=== PATIENT | male | born 1975 | race Two or more races ===

== ENCOUNTER 2024-05-12 07:50 | Day surgery (SDC) | payer MEDICAID, SELFPAY ==
--- NOTE | 2024-05-11 07:00 | EKG_ITS ---
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
[2024-05-11 11:08] VITALS: BMI 40.9
[2024-05-11 13:38] LABS: Basophils % (Auto) 1 % (0-2.5); Eosinophils # (Auto) 0.2 Thou/mm3 (0.0-0.5); Eosinophils % (Auto) 4 % (0-10); Hematocrit 42.9 % (41.0-53.0); Hemoglobin 15.2 g/dL (13.5-16.0); Immature Granulocytes % (Auto) 0 % (0-0); Immature Granulocytes Auto 0.01 Thou/mm3 (0.00-0.00); Lymphocytes # (Auto) 1.2 Thou/mm3 (1.0-4.8); Lymphocytes % (Auto) 23 % (10-50); Mean Corpuscular HGB Conc 35.4 g/dl (31.0-37.0); Mean Corpuscular Hemoglobin 30.3 pg (25.0-35.0); Mean Corpuscular Volume 86 fL (80-100); Monocytes # (Auto) 0.6 Thou/mm3 (0.0-0.8); Monocytes % (Auto) 12 % (0-12); Neutrophils # (Auto) 3.1 Thou/mm3 (1.8-7.7); Neutrophils % (Auto) 60 % (37-80); Nucleated Red Blood Cell % 0 /100 WBC (0); RDW Standard Deviation 41.7 fL (35.1-43.9); Red Blood Count 5.01 Miln/mm3 (4.50-5.90); White Blood Count 5.1 Thou/mm3 (3.8-10.6)
[2024-05-11 13:47] LABS: Alanine Aminotransferase 37 U/L (10-49); Albumin, Serum 3.7 gm/dL (3.5-5.0); Alkaline Phosphatase 245 U/L (46-116); Anion Gap 6 (7-16); Aspartate Amino Transferase 42 U/L (0-34); BUN/Creatinine Ratio 10 Ratio (12-20); Bilirubin,Total 1.7 mg/dL (0.3-1.2); Blood Urea Nitrogen 7 mg/dL (9-23); Calcium 9.4 mg/dL (8.3-10.6); Calcium (Corrected) 9.6 mg/dL (8.5-10.1); Chloride 103 mMol/L (98-107); Creatinine (Component) 0.7 mg/dL (0.6-1.3); Globulin 3.8 gm/dL (2.3-3.5); Glucose 177 mg/dL (74-106); Osmolality,Calculated 273 (275-295); Potassium 4.1 mMol/L (3.4-5.1); Sodium 136 mMol/L (136-145); Total Protein 7.5 gm/dL (5.7-8.2); eGFR > 60 See Note
[2024-05-11 13:52] LABS: INR 1.2 (0.9-1.3); Prothrombin Time 12.7 Seconds (9.0-12.2)
[2024-05-11 13:53] LABS: Platelet Count 67 Thou/mm3 (140-440)
[2024-05-11 13:55] LABS: Partial Thromboplastin Time 29.5 Seconds (22.0-36.0)
--- NOTE | 2024-05-11 14:32 | SUR.PREOP ---
Platelets 67, Dr Borja notified and ok to proceed with surgery.
--- NOTE | 2024-05-11 14:56 | SUR.PREOP ---
Dr Bloom notified of platelet count 67, also aware of Dr Huong rodriguez to proceed with surgery.
[2024-05-11 15:05] LABS: Slide Review Platelets confirmed
[2024-05-12] VITALS (8 sets, daily range): BP systolic 101–127; BP diastolic 60–79; PULSE 56–72; RESP 15–20; TEMP 36.2–36.6; O2SAT 94–95; BMI 40.8
[2024-05-12] MEDS: RINGERS LACTATED 1000 ML 1,000 ML 20 ML IV (09:02)
--- NOTE | 2024-05-12 10:31 | PD.SUROPNT ---
Date of Procedure 05/12/24 Pre Op Diagnosis Umbilical hernia Post Op Diagnosis Umbilical hernia Minimal ascites Procedure Primary repair of umbilical hernia Findings An approximately 3.5 cm umbilical hernia defect with minimal ascites Procedure Description Patient brought into the operating room and spine position. After administration of general tracheal anesthesia, patient's abdomen prepped and draped in standard surgical manner. Local anesthesia administered. An approximately 3 cm semicircular incision was made below the umbilicus and dissection was deepened into soft tissue. The umbilicus was detached from anterior abdominal fascia. The hernia sac was identified and circumferentially dissected off surrounding tissue. The defect was excised from anterior abdominal fascia. Patient was noted to have minimal amount of ascites that was suctioned. The defect was approximately 3.5 cm in diameter. The defect was primarily closed with interrupted [id number] sutures using 0 Prolene. The umbilicus was reattached into anterior abdominal fascia. Soft tissue reapproximated with interrupted sutures using 2-0 Vicryl. Subcutaneous tissue closed with interrupted sutures using 2-0 Vicryl and the incision was closed with 4-0 Monocryl in subcuticular fashion. Dermabond and sterile dressings applied. Patient tolerated procedure well. He was extubated, breathing spontaneously and without difficulty and was transferred to postanesthesia care in stable condition. Instruments, needles and sponge counts were reported to be correct x 2. Anesthesia GETA and local Pathology / specimen Other (Hernia sac) Estimated Blood Loss 5 Condition Stable Disposition PACU Surgeon Neyda Borja MD Surgical Staff Operation Date: 05/12/24 10:00 <No data on this case meets the specified criteria>
--- NOTE | 2024-05-12 10:36 | SUR.PHASEI ---
1036: Pt. AAOx4, vitals stable, breathing unlabored, no complaint of pain or nausea, dressing to umbillicus CDI, no active bleed noted, report received from Rosendo ARAYA and Arun RAUSCH.
[2024-05-12] MEDS: fentaNYL CIT INJ 50 mCg/ML AMP 2ML IV ×2 (11:01→11:09)
--- NOTE | 2024-05-12 11:40 | SUR.PHASEII ---
1140: Pt. AAOx4, vitals stable, breathing unlabored, no complaint of pain or nausea, dressing to ABD CDI, no active bleed noted, ABD Binder in place, pt. tolerated sips of water well, pt. ambulated to wheelchair with steady gait and no assist, no complications. Gave discharge instructions to the pt. and his ride, both verbalized understanding and had no further questions. Pt. left with all personal belongings.
== END 2024-05-12 11:40 | disposition home or self-care (01) ==
PROVIDERS: Anesthesiology; PCP Family Medicine; Referring Provider Surgery; Visit Provider Surgery
PROC: (CPT 49593; principal; 2024-05-12 09:45)
DX: K42.9 Umbilical hernia without obstruction or gangrene (principal); R18.8 Other ascites; Z01.810 Encounter for preprocedural cardiovascular examination
CPT/HCPCS: 49593; 36415; 80048; 80053; 85025; 85610; 85730; 93005; A4217; A4649; J0131; J0690; J2405; J2704; J2765; J3010; J3490; J7120

== ENCOUNTER 2024-10-09 00:38 | Emergency (ER) | payer MEDICAID, SELFPAY ==
[2024-10-09] VITALS (13 sets, daily range): BP systolic 123–186; BP diastolic 58–97; PULSE 32–63; RESP 15–20; TEMP 36.6–37.1; O2SAT 86–96
--- NOTE | 2024-10-09 00:50 | XR_ITS ---
Examination: CT abdomen and pelvis without contrast. Coronal 3-D reconstructions. Sagittal 2-D reconstructions. Date and time of exam:October 09, 2024 at 0444 hours INDICATIONS: Right upper abdominal pain beginning 6 hours ago CTDI: vol (mGy): 17.11 DLP: (mGycm): 1158 Technique: Axial images of the abdomen have been obtained, 3 mm slice thickness Intravenous contrast material has not been administered. Low dose protocols were performed. One or more of the following dose reduction techniques were used; automated exposure control, adjustment of the mA and/or KV according to patient size, use of iterative reconstruction technique. Findings: Atelectasis in the left lower lung zone Cirrhosis, liver nodular in contour with trace ascites Significant splenomegaly Portosystemic collateral vessels medial to the spleen Multiple gallstones distended gallbladder, gallbladder wall is thickened There is ascitic fluid around the pancreas No hydronephrosis Aorta normal size Normal appendix No bowel obstruction Contracted urinary bladder Mild prostatomegaly IMPRESSION: Cirrhosis Splenomegaly. Mild ascites. Recommend MRCP or HIDA scan follow-up to exclude calculus cholecystitis
--- NOTE | 2024-10-09 00:50 | PD.EDRME ---
Rapid Medical Screening Exam RME Arrival date/time: 10/09/24 00:38 This is a case of 49-year-old female with history of gallstone liver disease and cirrhosis came in in the emergency room due to generalized abdominal pain with nausea vomiting for 1 day worsening of the symptoms this patient decided to sought consult here in the emergency room Chief Complaint: Abdominal Pain Time Seen by Provider: 10/09/24 00:42 Vital signs: Vital Signs Temperature 97.9 F 10/09/24 00:42 Pulse Rate 60 10/09/24 00:42 Respiratory Rate 17 10/09/24 00:42 Blood Pressure 186/97 H 10/09/24 00:42 Pulse Oximetry (%) 96 10/09/24 00:42 Oxygen Delivery Method Room Air 10/09/24 00:42
[2024-10-09 01:33] LABS: Collection Type, Urine Clean Catch; Squamous Epithelial Cell,Urine 0 /hpf (0-5)
[2024-10-09 01:38] LABS: Basophils # (Auto) 0.0 Thou/mm3 (0.0-0.2); Basophils % (Auto) 0 % (0-2.5); Eosinophils # (Auto) 0.1 Thou/mm3 (0.0-0.5); Eosinophils % (Auto) 3 % (0-10); Hematocrit 44.5 % (41.0-53.0); Hemoglobin 15.1 g/dL (13.5-16.0); Immature Granulocytes Auto 0.01 Thou/mm3 (0.00-0.00); Lymphocytes # (Auto) 0.9 Thou/mm3 (1.0-4.8); Lymphocytes % (Auto) 18 % (10-50); Mean Corpuscular HGB Conc 33.9 g/dl (31.0-37.0); Mean Corpuscular Hemoglobin 30.1 pg (25.0-35.0); Mean Corpuscular Volume 89 fL (80-100); Monocytes # (Auto) 0.6 Thou/mm3 (0.0-0.8); Monocytes % (Auto) 12 % (0-12); Neutrophils # (Auto) 3.2 Thou/mm3 (1.8-7.7); Neutrophils % (Auto) 68 % (37-80); Nucleated Red Blood Cell # 0.00 Thou/mm3 (0.00-0.00); Nucleated Red Blood Cell % 0 /100 WBC (0); RDW Standard Deviation 44.4 fL (35.1-43.9); Red Blood Count 5.02 Miln/mm3 (4.50-5.90); White Blood Count 4.8 Thou/mm3 (3.8-10.6)
[2024-10-09 01:39] LABS: Bilirubin,Urine Negative (Negative); Blood,Urine Negative (Negative); Clarity,Urine Clear (Clear/Hazy); Color,Urine Lt-Yellow (Lt Yel-Yel); Glucose, Urine Negative (Negative); Ketones,Urine Negative (Negative); Leukocyte Esterase,Urine Negative (Negative); Nitrite,Urine Negative (Negative); PH,Urine 7.0 (5.0-7.0); Protein,Urine Negative (Neg - Trace); RBC,Urine 1 /hpf (0-3); Specific Gravity,Urine 1.015 (1.001-1.035); Urobilinogen,Urine 4.0 mg/dL (0.0-1.0); WBC,Urine 1 /hpf (0-5)
[2024-10-09 01:51] LABS: Alanine Aminotransferase 23 U/L (10-49); Albumin, Serum 3.9 gm/dL (3.5-5.0); Albumin/Globulin Ratio 1.2 (1.2-2.2); Alkaline Phosphatase 238 U/L (46-116); Anion Gap 6 (7-16); Aspartate Amino Transferase 41 U/L (0-34); BUN/Creatinine Ratio 8 Ratio (12-20); Bilirubin,Total 1.3 mg/dL (0.3-1.2); Blood Urea Nitrogen 7 mg/dL (9-23); Calcium 8.7 mg/dL (8.3-10.6); Calcium (Corrected) 8.8 mg/dL (8.5-10.1); Carbon Dioxide 27.3 mMol/L (20.0-31.0); Chloride 104 mMol/L (98-107); Creatinine (Component) 0.9 mg/dL (0.6-1.3); Globulin 3.3 gm/dL (2.3-3.5); Glucose 197 mg/dL (74-106); Lipase 46 U/L (12-53); Osmolality,Calculated 276 (275-295); Potassium 4.1 mMol/L (3.4-5.1); Sodium 137 mMol/L (136-145); Total Protein 7.2 gm/dL (5.7-8.2); eGFR > 60 See Note
--- NOTE | 2024-10-09 02:02 | PD.EDABDPN ---
ED Abdominal Pain RME/HPI General Chief Complaint: Abdominal Pain Stated complaint: ABD PAIN Time seen by provider: 10/09/24 00:42 Arrival date/time: 10/09/24 00:38 RME / HPI RME / HPI narrative: 10/09/24 00:38 This is a case of 49-year-old female with history of gallstone liver disease and cirrhosis came in in the emergency room due to generalized abdominal pain with nausea vomiting for 1 day worsening of the symptoms this patient decided to sought consult here in the emergency room DR. SIMMONS MAIN ED EVALUATION: 49 y/o male with Hx of Liver Cirrhosis, Gall Bladder Disease, HTN, Esophageal Varices and Obesity presents to ED c/o worsening RUQ abdominal pain s/p eating x approximately 10 hours. Last meal consumed was carne con chile claire and beans. Denies alcohol consumption over the last 3 years. No other concerns or complaints experssed at this time. Related Data Home Medications ?Medication ?Instructions ?Recorded ?Confirmed carvedilol 6.25 mg tablet 6.25 mg PO DAILY 05/11/24 05/12/24 Previous Rx's ?Medication ?Instructions ?Recorded docusate sodium 100 mg capsule 100 mg PO BID #40 caps 05/12/24 (Colace) hydrocodone 5 mg-acetaminophen 325 1 tab PO Q6H PRN pain (scale score 05/12/24 mg tablet 7-10) #15 tabs ibuprofen 600 mg tablet 600 mg PO Q8H PRN pain (scale 05/12/24 score 4-6) #15 tabs Allergies Allergy/AdvReac Type Severity Reaction Status Date / Time No Known Allergies Allergy Verified 10/09/24 00:38 Review of Systems Review of Systems Systems Reviewed: All systems reviewed, normal except as documented Past Medical History Past Medical History CARDIAC: Positive Cardiac Disorders and Hypertension GASTROINTESTINAL: Positive Gastrointestinal Disorders, Cirrhosis, Gall Bladder Disease, Gastrointestinal Bleed (esophageal varices) and Obesity OTHER HISTORY: Positive Hospitalization (GIB) Family History FAMILY HISTORY: Positive Family Surgery ED Exam Narrative Physical exam: Generally patient is alert oriented x 3 in no obvious distress heart is regular rate and rhythm lungs clear to auscultation equal bilaterally abdomen soft bowel sounds present nondistended with mild right upper quadrant abdominal tenderness without rebound. Negative Knutson sign. Course Quality Measures none Orders Category Date Time Status CT abdomen pelvis wo con Stat Exams 10/09/24 00:50 Taken US gall bladder Stat Exams 10/09/24 02:53 Taken CBC Stat Lab 10/09/24 01:19 Completed Comprehensive Metabolic Panel Stat Lab 10/09/24 01:19 Completed Lipase Stat Lab 10/09/24 01:19 Completed Urinalysis Stat Lab 10/09/24 01:08 Completed Morphine Inj Med 10/09/24 02:07 Discontinued 4 mg IVP X1 ONE Vital Signs Vital signs: Vital Signs Temperature 97.9 F 10/09/24 00:42 Pulse Rate 60 10/09/24 00:42 Respiratory Rate 17 10/09/24 00:42 Blood Pressure 186/97 H 10/09/24 00:42 Pulse Oximetry (%) 96 10/09/24 00:42 Oxygen Delivery Method Room Air 10/09/24 00:42 Abdominal Pain MDM MDM Narrative MDM Narrative:: Scribe Attestation: I, Rosa June, am scribing for and in the presence of Dr. Simmons. Provider Notation: Although this document has been carefully reviewed, there may still be some phonetic and other typographical errors.? These errors are purely grammatical due to imperfections in the software program and should not be construed in any way to? compromise the substance of the patient's medical care during this visit. I interpreted all labs. LFTs are at baseline. There is no leukocytosis. Patient is afebrile. CT scan done of the abdomen and pelvis with IV contrast ordered prior to me seeing the patient showed a distended gallbladder with somewhat of a thickened wall and stones. Gallbladder ultrasound was ordered with results pending at this time. 0600: Care assumed by Dr. Sarmiento (emergency physician). Past medical, surgical, social and family history reviewed. Vitals and home medications reviewed. Results and treatment plan discussed. They will assume the care of the patient at this time and will follow the patient, pending Gall Bladder US. Patient data External records reviewed:: [facility] previous records (No prior ED records available for review.) Clinical information provided by:: patient Social determinants that could affect healthcare access:: none Patient has the following chronic illnesses:: Hypertension, Cirrhosis, Gall Bladder Disease, Gastrointestinal Bleed (esophageal varices) and Obesity How is presenting disease/condition affected by chronic disease/condition?: exacerbated by Evaluation data The following diagnostics were reviewed and interpreted by me:: lab results and radiology exam(s) Lab and/or radiology exams considered but not ordered:: None Interpretation Summary: RADIOLOGY Abdomen/Pelvis CT: Findings: The lung bases are clear. The kidneys and adrenals are unremarkable on this noncontrast study. Mild peripancreatic fat stranding. No pancreatic duct dilation. Irregular liver margins. Splenomegaly with craniocaudal diameter of 17.5 cm. Distended gallbladder with prominent wall. Gallstones. No evidence of bowel obstruction. No evidence of appendicitis. There is no mesenteric or retroperitoneal adenopathy. The urinary bladder is nondistended, limited evaluation. There is no free air. Small ascites. Degenerative changes of the imaged portions of the spine. No acute fractures. Impression: Possible acute calculus cholecystitis. Consider correlation with right upper quadrant ultrasound. Possible acute pancreatitis. Please, correlate clinically. Cirrhosis associated with splenomegaly. Gall Bladder US: Pending official radiology report. Medications / Prescriptions Medications or Prescriptions considered but not ordered:: None Medication administrations:: Medication Administration History Discontinued Medications Morphine Sulfate (Morphine Sulf Inj 10 Mg/Ml Vial) 4 mg IVP X1 ONE Stop: 10/09/24 02:08 Last Admin: 10/09/24 02:28 Dose: 4 mg Documented By: [email or web address] See above. Consultations Consultation(s) initiated? (list below): No Diagnosis Differential diagnosis abdominal pain: abdominal pain, calculus of kidney, constipation, diverticulitis, gastroenteritis, pancreatitis and small bowel obstruction Most likely diagnosis given after review of the tests above:: Cholelithiasis Admission Indicated Admission indicated?: not indicated Explain why admission is indicated or not indicated:: Pending Gall Bladder US. Admission Request Was there a request for admission?: No Disposition Plan Disposition Plan: other (specify) (Signed-out to oncoming ED physician at 6 AM.) Discharge Plan Prescriptions/Referrals Prescriptions/Med Rec: No Action carvedilol 6.25 mg tablet 6.25 mg PO DAILY Rx Instructions: must administer with a meal/food docusate sodium [Colace] 100 mg capsule 100 mg PO BID Qty: 40 0RF hydrocodone-acetaminophen 5-325 mg tablet 1 tab PO Q6H MDD 4 PRN (Reason: pain (scale score 7-10)) Qty: 15 0RF ibuprofen 600 mg tablet 600 mg PO Q8H PRN (Reason: pain (scale score 4-6)) Qty: 15 0RF Referrals: Rolando Messer MD [Primary Care Provider] - In 1 week Problem List Clinical Impression: Cholelithiasis Patient/Caregiver Discharge Instructions Print Language: Kazakh
[2024-10-09 02:13] LABS: Platelet Count 73 Thou/mm3 (140-440); Slide Review Platelets confirmed
[2024-10-09] MEDS: MORPHINE SULF INJ 10 MG/ML VIAL 4 MG IVP (02:28)
--- NOTE | 2024-10-09 02:41 | PRELIM_ITS ---
CT scan of the abdomen and pelvis without intravenous contrast (axial sections with sagittal and coronal reformats) October 09, 2024 0127 hours Clinical History: Abdominal pain Comparison: None. Findings: The lung bases are clear. The kidneys and adrenals are unremarkable on this noncontrast study. Mild peripancreatic fat stranding. No pancreatic duct dilation. Irregular liver margins. Splenomegaly with craniocaudal diameter of 17.5 cm. Distended gallbladder with prominent wall. Gallstones. No evidence of bowel obstruction. No evidence of appendicitis. There is no mesenteric or retroperitoneal adenopathy. The urinary bladder is nondistended, limited evaluation. There is no free air. Small ascites. Degenerative changes of the imaged portions of the spine. No acute fractures. Impression: Possible acute calculus cholecystitis. Consider correlation with right upper quadrant ultrasound. Possible acute pancreatitis. Please, correlate clinically. Cirrhosis associated with splenomegaly. Report Electronically Signed By: Leobardo العراقي 10/09/2024 2:41:16 AM [EST]
--- NOTE | 2024-10-09 02:53 | XR_ITS ---
Examination: Abdomen sonogram, Limited Date and time of exam: October 09, 2024, 0444 hours INDICATIONS: Right upper abdominal pain beginning October 09, 2024. Technique: Real-time mccray scale transabdominal sonographic images of the upper abdomen obtained. Findings: Gallbladder sludge. No gallstones identified. Normal gallbladder wall. Normal common bile duct 0.4 cm Pancreatic head 3.9 cm Liver 18 cm irregular contour Normal hepatopedal portal venous flow Patent IVC IMPRESSION: Gallbladder sludge Liver is irregular in contour and enlarged 18 cm Mild ascites Prominent pancreatic head, however please see the CT abdomen and pelvis report this morning
--- NOTE | 2024-10-09 06:25 | EDNOTE_ITS ---
Emergency Room Addendum <Brisa Arriola - Last Filed: 10/09/24 07:29> Addendum Narrative: 0600: Care assumed from Dr. Key, the previous shift emergency physician. Past medical, surgical, social and family history reviewed. Vitals and home medications reviewed. I will assume the care of the patient at this time, pending diagnostic tests and final disposition. Please refer to the emergency department record for history and examination from initial visit.? Physical exam by me shows patient under no acute distress at this time. <Mary Sarmiento MD - Last Filed: 10/09/24 07:30> Addendum Narrative: 0600: Care assumed from Dr. Key, the previous shift emergency physician. Past medical, surgical, social and family history reviewed. Vitals and home medications reviewed. I will assume the care of the patient at this time, pending diagnostic tests and final disposition. Please refer to the emergency department record for history and examination from initial visit.? Physical exam by me shows patient under no acute distress at this time. Symptoms significantly improved, tolerating oral intake. Labs without any significant acute hematologic or metabolic abnormality. Patient with baseline transaminitis, not significantly deranged from prior. CT abdomen pelvis showed mild ascites irregular liver as well as possible thickened gallbladder wall. Right upper quadrant ultrasound shows normal gallbladder wall, no pericholecystic fluid, no evidence of dilated common bile duct. Given reassuring workup, advised patient to follow-up with his primary care doctor, establish care with a surgeon for management of his symptomatic cholelithiasis. Patient is nonseptic nontoxic-appearing at this time. Will discharge to home. Results <Brisa Arriola - Last Filed: 10/09/24 07:29> Objective Laboratory: Laboratory Last Values WBC 4.8 Thou/mm3 (3.8-10.6) 10/09/24 01:19 RBC 5.02 Miln/mm3 (4.50-5.90) 10/09/24 01:19 Hgb 15.1 g/dL (13.5-16.0) 10/09/24 01:19 Hct 44.5 % (41.0-53.0) 10/09/24 01:19 MCV 89 fL (80-100) 10/09/24 01:19 MCH 30.1 pg (25.0-35.0) 10/09/24 01:19 MCHC 33.9 g/dl (31.0-37.0) 10/09/24 01:19 RDW Std Deviation 44.4 fL (35.1-43.9) H 10/09/24 01:19 Plt Count 73 Thou/mm3 (140-440) L 10/09/24 01:19 Neut % (Auto) 68 % (37-80) 10/09/24 01:19 Lymph % (Auto) 18 % (10-50) 10/09/24 01:19 [place] % (Auto) 12 % (0-12) 10/09/24 01:19 Eos % (Auto) 3 % (0-10) 10/09/24 01:19 Baso % (Auto) 0 % (0-2.5) 10/09/24 01:19 Neut # (Auto) 3.2 Thou/mm3 (1.8-7.7) 10/09/24 01:19 Lymph # (Auto) 0.9 Thou/mm3 (1.0-4.8) L 10/09/24 01:19 [place] # (Auto) 0.6 Thou/mm3 (0.0-0.8) 10/09/24 01:19 Eos # (Auto) 0.1 Thou/mm3 (0.0-0.5) 10/09/24 01:19 Baso # (Auto) 0.0 Thou/mm3 (0.0-0.2) 10/09/24 01:19 Immature Gran # (Auto) 0.01 Thou/mm3 (0.00-0.00) H 10/09/24 01:19 Absolute Nucleated RBC 0.00 Thou/mm3 (0.00-0.00) 10/09/24 01:19 Immature Gran % 0 % (0-0) 10/09/24 01:19 Nucleated RBC % 0 /100 WBC (0) 10/09/24 01:19 Sodium 137 mMol/L (136-145) 10/09/24 01:19 Potassium 4.1 mMol/L (3.4-5.1) 10/09/24 01:19 Chloride 104 mMol/L (98-107) 10/09/24 01:19 Carbon Dioxide 27.3 mMol/L (20.0-31.0) 10/09/24 01:19 Anion Gap 6 (7-16) L 10/09/24 01:19 BUN 7 mg/dL (9-23) L 10/09/24 01:19 Creatinine 0.9 mg/dL (0.6-1.3) 10/09/24 01:19 Estim Creat Clear Calc Not Performed. 10/09/24 01:19 eGFR > 60 See Note (60-) 10/09/24 01:19 BUN/Creatinine Ratio 8 Ratio (12-20) L 10/09/24 01:19 Glucose 197 mg/dL (74-106) H 10/09/24 01:19 Calculated Osmolality 276 (275-295) 10/09/24 01:19 Calcium 8.7 mg/dL (8.3-10.6) 10/09/24 01:19 Corrected Calcium 8.8 mg/dL (8.5-10.1) 10/09/24 01:19 Total Bilirubin 1.3 mg/dL (0.3-1.2) H 10/09/24 01:19 AST 41 U/L (0-34) H 10/09/24 01:19 ALT 23 U/L (10-49) 10/09/24 01:19 Alkaline Phosphatase 238 U/L (46-116) H 10/09/24 01:19 Total Protein 7.2 gm/dL (5.7-8.2) 10/09/24 01:19 Albumin 3.9 gm/dL (3.5-5.0) 10/09/24 01:19 Globulin 3.3 gm/dL (2.3-3.5) 10/09/24 01:19 Albumin/Globulin Ratio 1.2 (1.2-2.2) 10/09/24 01:19 Lipase 46 U/L (12-53) 10/09/24 01:19 Ur Collection Type Clean Catch 10/09/24 01:08 Urine Color Lt-Yellow (Lt Yel-Yel) 10/09/24 01:08 Urine Clarity Clear (Clear/Hazy) 10/09/24 01:08 Urine pH 7.0 (5.0-7.0) 10/09/24 01:08 Ur Specific [place] 1.015 (1.001-1.035) 10/09/24 01:08 Urine Protein Negative (Neg - Trace) 10/09/24 01:08 Urine Glucose (UA) Negative (Negative) 10/09/24 01:08 Urine Ketones Negative (Negative) 10/09/24 01:08 Urine Blood Negative (Negative) 10/09/24 01:08 Urine Nitrite Negative (Negative) 10/09/24 01:08 Urine Bilirubin Negative (Negative) 10/09/24 01:08 Urine Urobilinogen (Auto) 4.0 mg/dL (0.0-1.0) 10/09/24 01:08 Ur Leukocyte Esterase Negative (Negative) 10/09/24 01:08 Urine RBC 1 /hpf (0-3) 10/09/24 01:08 Urine WBC 1 /hpf (0-5) 10/09/24 01:08 Ur Squamous Epith Cells 0 /hpf (0-5) 10/09/24 01:08 Urine Bacteria None (None) 10/09/24 01:08 Misc Test Result Platelets confirmed 10/09/24 01:19 Imaging: Procedure(s): US gall bladder Accession Number(s): [id number] cc: Rolando Messer MD; Rosendo Zamudio MD; Lenny Key DO~ Examination: Abdomen sonogram, Limited Date and time of exam: October 09, 2024, 0444 hours INDICATIONS: Right upper abdominal pain beginning October 09, 2024. Technique: Real-time mccray scale transabdominal sonographic images of the upper abdomen obtained. Findings: Gallbladder sludge. No gallstones identified. Normal gallbladder wall. Normal common bile duct 0.4 cm Pancreatic head 3.9 cm Liver 18 cm irregular contour Normal hepatopedal portal venous flow Patent IVC IMPRESSION: Gallbladder sludge Liver is irregular in contour and enlarged 18 cm Mild ascites Prominent pancreatic head, however please see the CT abdomen and pelvis report this morning Dictated By: Rosendo Zamudio MD Procedure(s): CT abdomen pelvis wo con Accession Number(s): [id number] cc: Rolando Messer MD; Rosendo Zamudio MD; Bakari BoothP~ Examination: CT abdomen and pelvis without contrast. Coronal 3-D reconstructions. Sagittal 2-D reconstructions. Date and time of exam:October 09, 2024 at 0444 hours INDICATIONS: Right upper abdominal pain beginning 6 hours ago CTDI: vol (mGy): 17.11 DLP: (mGycm): 1158 Technique: Axial images of the abdomen have been obtained, 3 mm slice thickness Intravenous contrast material has not been administered. Low dose protocols were performed. One or more of the following dose reduction techniques were used; automated exposure control, adjustment of the mA and/or KV according to patient size, use of iterative reconstruction technique. Findings: Atelectasis in the left lower lung zone Cirrhosis, liver nodular in contour with trace ascites Significant splenomegaly Portosystemic collateral vessels medial to the spleen Multiple gallstones distended gallbladder, gallbladder wall is thickened There is ascitic fluid around the pancreas No hydronephrosis Aorta normal size Normal appendix No bowel obstruction Contracted urinary bladder Mild prostatomegaly IMPRESSION: Cirrhosis Splenomegaly. Mild ascites. Recommend MRCP or HIDA scan follow-up to exclude calculus cholecystitis Dictated By: Rosendo Zamudio MD <Mary Sarmiento MD - Last Filed: 10/09/24 07:30> Objective Laboratory: Laboratory Last Values WBC 4.8 Thou/mm3 (3.8-10.6) 10/09/24 01:19 RBC 5.02 Miln/mm3 (4.50-5.90) 10/09/24 01:19 Hgb 15.1 g/dL (13.5-16.0) 10/09/24 01:19 Hct 44.5 % (41.0-53.0) 10/09/24 01:19 MCV 89 fL (80-100) 10/09/24 01:19 MCH 30.1 pg (25.0-35.0) 10/09/24 01:19 MCHC 33.9 g/dl (31.0-37.0) 10/09/24 01:19 RDW Std Deviation 44.4 fL (35.1-43.9) H 10/09/24 01:19 Plt Count 73 Thou/mm3 (140-440) L 10/09/24 01:19 Neut % (Auto) 68 % (37-80) 10/09/24 01:19 Lymph % (Auto) 18 % (10-50) 10/09/24 01:19 [place] % (Auto) 12 % (0-12) 10/09/24 01:19 Eos % (Auto) 3 % (0-10) 10/09/24 01:19 Baso % (Auto) 0 % (0-2.5) 10/09/24 01:19 Neut # (Auto) 3.2 Thou/mm3 (1.8-7.7) 10/09/24 01:19 Lymph # (Auto) 0.9 Thou/mm3 (1.0-4.8) L 10/09/24 01:19 [place] # (Auto) 0.6 Thou/mm3 (0.0-0.8) 10/09/24 01:19 Eos # (Auto) 0.1 Thou/mm3 (0.0-0.5) 10/09/24 01:19 Baso # (Auto) 0.0 Thou/mm3 (0.0-0.2) 10/09/24 01:19 Immature Gran # (Auto) 0.01 Thou/mm3 (0.00-0.00) H 10/09/24 01:19 Absolute Nucleated RBC 0.00 Thou/mm3 (0.00-0.00) 10/09/24 01:19 Immature Gran % 0 % (0-0) 10/09/24 01:19 Nucleated RBC % 0 /100 WBC (0) 10/09/24 01:19 Sodium 137 mMol/L (136-145) 10/09/24 01:19 Potassium 4.1 mMol/L (3.4-5.1) 10/09/24 01:19 Chloride 104 mMol/L (98-107) 10/09/24 01:19 Carbon Dioxide 27.3 mMol/L (20.0-31.0) 10/09/24 01:19 Anion Gap 6 (7-16) L 10/09/24 01:19 BUN 7 mg/dL (9-23) L 10/09/24 01:19 Creatinine 0.9 mg/dL (0.6-1.3) 10/09/24 01:19 Estim Creat Clear Calc Not Performed. 10/09/24 01:19 eGFR > 60 See Note (60-) 10/09/24 01:19 BUN/Creatinine Ratio 8 Ratio (12-20) L 10/09/24 01:19 Glucose 197 mg/dL (74-106) H 10/09/24 01:19 Calculated Osmolality 276 (275-295) 10/09/24 01:19 Calcium 8.7 mg/dL (8.3-10.6) 10/09/24 01:19 Corrected Calcium 8.8 mg/dL (8.5-10.1) 10/09/24 01:19 Total Bilirubin 1.3 mg/dL (0.3-1.2) H 10/09/24 01:19 AST 41 U/L (0-34) H 10/09/24 01:19 ALT 23 U/L (10-49) 10/09/24 01:19 Alkaline Phosphatase 238 U/L (46-116) H 10/09/24 01:19 Total Protein 7.2 gm/dL (5.7-8.2) 10/09/24 01:19 Albumin 3.9 gm/dL (3.5-5.0) 10/09/24 01:19 Globulin 3.3 gm/dL (2.3-3.5) 10/09/24 01:19 Albumin/Globulin Ratio 1.2 (1.2-2.2) 10/09/24 01:19 Lipase 46 U/L (12-53) 10/09/24 01:19 Ur Collection Type Clean Catch 10/09/24 01:08 Urine Color Lt-Yellow (Lt Yel-Yel) 10/09/24 01:08 Urine Clarity Clear (Clear/Hazy) 10/09/24 01:08 Urine pH 7.0 (5.0-7.0) 10/09/24 01:08 Ur Specific [place] 1.015 (1.001-1.035) 10/09/24 01:08 Urine Protein Negative (Neg - Trace) 10/09/24 01:08 Urine Glucose (UA) Negative (Negative) 10/09/24 01:08 Urine Ketones Negative (Negative) 10/09/24 01:08 Urine Blood Negative (Negative) 10/09/24 01:08 Urine Nitrite Negative (Negative) 10/09/24 01:08 Urine Bilirubin Negative (Negative) 10/09/24 01:08 Urine Urobilinogen (Auto) 4.0 mg/dL (0.0-1.0) 10/09/24 01:08 Ur Leukocyte Esterase Negative (Negative) 10/09/24 01:08 Urine RBC 1 /hpf (0-3) 10/09/24 01:08 Urine WBC 1 /hpf (0-5) 10/09/24 01:08 Ur Squamous Epith Cells 0 /hpf (0-5) 10/09/24 01:08 Urine Bacteria None (None) 10/09/24 01:08 Misc Test Result Platelets confirmed 10/09/24 01:19
== END 2024-10-09 08:13 | disposition home or self-care (01) ==
PROVIDERS: Nurse Practitioner Family; Emergency Provider Emergency Medicine; PCP Family Medicine
DX: K80.20 Calculus of gallbladder without cholecystitis without obstruction (principal); K82.8 Other specified diseases of gallbladder; K74.60 Unspecified cirrhosis of liver; R18.8 Other ascites; R16.2 Hepatomegaly with splenomegaly, not elsewhere classified
CPT/HCPCS: 36415; 74176; 76705; 80053; 81001; 83690; 85025; 96374; 99283; J2270

== ENCOUNTER → 2024-11-18 | Outpatient (CLI) | payer MEDICAID, SELFPAY ==
--- NOTE | 2024-11-18 15:00 | XR_ITS ---
Examination: Abdomen sonogram, Limited Date and time of exam: December 08, 2024, 1502 hours Diagnosis cirrhosis 3 years ago Technique: Real-time mccray scale transabdominal sonographic images of the upper abdomen obtained. Findings: Gallbladder sludge versus tiny gallstones Gallbladder wall 0.39 cm no edema Common bile duct 0.4 cm Pancreatic head 3.6 cm Liver 17.5 cm nodular contour No focal liver lesions. Normal hepatopedal portal venous flow Patent IVC IMPRESSION: Gallbladder sludge versus tiny gallstones Cirrhosis, mild to moderate hepatomegaly, no focal liver lesions
== END | disposition home or self-care (01) ==
LOC: CDIM 14:47
PROVIDERS: PCP Family Medicine; Referring Provider Internal Medicine; Visit Provider Internal Medicine
DX: K74.60 Unspecified cirrhosis of liver (principal); K82.8 Other specified diseases of gallbladder
CPT/HCPCS: 76705